=== PATIENT | male | born 1965 | race African-American/Black ===

== ENCOUNTER 2024-06-05 08:15 | Emergency (ER) | payer MEDICAID ==
[~2024-06-05] VITALS: Ht 185.4 cm; Wt 109.0 kg
[2024-06-05 08:18] VITALS: BP 159/107
[2024-06-05] MEDS: PREDNISONE 20MG TABLET PO ONE (09:48)
[2024-06-05] MEDS: IPRATROPIUM/ALBUTEROL 0.5-3(2.5)MG/3ML NEB HHN ONE (09:57)
[2024-06-05 09:58] VITALS: PULSE 80; RESP 22; O2SAT 98
[2024-06-05] MEDS ORDERED: IPRA3AMP9 NEB (10:58)
[2024-06-05] MEDS ORDERED: ALBU90AE INH (10:58)
[2024-06-05] MEDS ORDERED: P20 MT (10:58)
[2024-06-05] MEDS ORDERED: DEXT30SU17 MT (11:03)
[2024-06-05] MEDS ORDERED: IBUP-1525 MT (11:03)
[2024-06-05 11:12] VITALS: PULSE 80; RESP 19; TEMP 37.00296; O2SAT 98
== END 2024-06-05 11:13 | disposition home or self-care (01) ==
LOC: ER 08:23
DX: E78.00 Pure hypercholesterolemia, unspecified (principal); I10 Essential (primary) hypertension; J45.901 Unspecified asthma with (acute) exacerbation; Z20.822 Contact with and (suspected) exposure to COVID-19
CPT/HCPCS: 87804 ×2; 71045; 94640; 93005; 99285; 87426; J7512; Z7610 ×3